=== PATIENT | female | born 1955 | race Two or more races ===

== ENCOUNTER 2018-06-04 08:30 | Inpatient (IN) | payer OTHER ==
[~2018-06-04] VITALS: Ht 157.5 cm; Wt 74.8 kg
[2018-06-11] MEDS ORDERED: BACTRIM DS TAB1 EACH PO (10:31)
[2018-06-11] MEDS ORDERED: INTEGRA PLUS C1 EACH PO (10:31)
[2018-06-11] MEDS ORDERED: XARELTO10 MG PO (10:31)
[2018-06-11] MEDS ORDERED: OXYC1TAB9 PO (10:31)
== END 2018-06-12 13:05 | DRG 470 ==
LOC: O/R 06-09 06:51 → SURH 06-09 06:51
PROVIDERS: Orthopaedic Surgery Sports Medicine
PROC: 0SRC0J9 Replacement of Right Knee Joint with Synthetic Substitute, Cemented, Open Approach (ICD-10-PCS; principal; 2018-06-09 09:00)
DX: M17.11 Unilateral primary osteoarthritis, right knee (principal)

== ENCOUNTER 2025-08-31 07:30 | Inpatient (IN) | payer OTHER ==
[~2025-08-31] VITALS: Ht 157.5 cm; Wt 69.4 kg
[~2025-08-31 07:30] MED LIST: BACTRIM DS TAB1 EACH PO; INTEGRA PLUS C1 EACH PO; OXYC1TAB9 PO; XARELTO10 MG PO
[2025-08-31 09:33] VITALS: BP 132/82
[2025-09-07] MEDS ORDERED: CEFAZOLIN SODIUM 1,000 MG VIAL ONE ×3 (08:13→15:51)
[2025-09-07] MEDS ORDERED: POVIDONE-IODINE 118 ML BOTT TOP ONE (10:47)
[2025-09-07] MEDS ORDERED: VANCOMYCIN HCL 1,000 MG VIAL ONE (10:47)
[2025-09-07] MEDS ORDERED: BUPIVACAINE HCL/MPF 0.5% 30ML VIAL ONE (10:47)
[2025-09-07] MEDS ORDERED: TRANEXAMIC ACID 100MG/1ML (1000MG) AMPUL ONE (10:47)
[2025-09-07] MEDS ORDERED: LIDOCAINE HCL 1%/EPINEPHRINE 20ML VIAL IJ ONE (10:47)
[2025-09-07] MEDS ORDERED: KETOROLAC TROMETHAMINE 60 MG VIAL IM ONE (12:25)
[2025-09-07] MEDS ORDERED: OxyCODONE HCL 5 MG TABLET (ROXICODONE) PO PRN (15:30)
[2025-09-07] MEDS ORDERED: MORPHINE SULFATE 4 MG/ML CARTRIDGE IV PRN (15:30)
[2025-09-07] MEDS ORDERED: ONDANSETRON HCL 2 MG/ML VIAL IV PRN (15:30)
[2025-09-07] MEDS ORDERED: SODIUM CHLORIDE 0.45 % 1,000 ML IV SCH (15:30)
[2025-09-07] MEDS ORDERED: GABAPENTIN 300 MG CAPSULE PO ONE (15:57)
[2025-09-07 16:20] VITALS: BP 120/63; O2SAT 98
[2025-09-07] MEDS ORDERED: CEFAZOLIN SODIUM 1,000 MG VIAL IV SCH (17:00)
[2025-09-07] MEDS ORDERED: GABAPENTIN 300 MG CAPSULE PO SCH (17:00)
[2025-09-07] MEDS ORDERED: ACETAMINOPHEN 500 MG GEL..CAP PO SCH (18:00)
[2025-09-08 01:27] VITALS: BP 100/68; O2SAT 98
[2025-09-08 06:16] LABS: BASO % 0.6 % (0.1-1.2); EOS # 0.28 (0.04-0.54); EOS % 4.0 % (0.7-7.0); LYMPH # 1.46 (1.18-3.74); LYMPH % 20.9 % (19.3-53.1); MEAN PLATELET VOLUME 8.60 fl (9.4-12.4); MONO # 0.69 (0.24-0.82); MONO % 9.9 % (4.7-12.5); NEUT # 4.48 (1.56-6.13); NEUT % 64.3 % (34.0-71.1); RED CELL DISTRIBUTION WIDTH 13.6 % (11.6-14.4)
[2025-09-08] MEDS ORDERED: ELIQUIS2.5 MG PO (07:45)
[2025-09-08] MEDS ORDERED: PERCOCET 5-3251 EACH PO (07:45)
[2025-09-08] MEDS ORDERED: LEVOFLOXACIN750 MG PO (07:45)
[2025-09-08] MEDS ORDERED: APIXABAN 2.5 MG TABLET PO SCH (09:00)
[2025-09-08] MEDS ORDERED: SENNOSIDES 1 TAB TABLET PO SCH (09:00)
[2025-09-08 09:07] VITALS: BP 98/59; O2SAT 100
[2025-09-08 11:32] LABS: COVID-19 AG NEGATIVE (NEGATIVE)
[2025-09-08 11:45] LABS: BUN CREA RATIO 15.0 (7.0-25.0); CREATININE SERUM 0.75 mg/dL (0.55-1.02); GFR 77.08; GLUCOSE FASTING 115.0 mg/dL (65-100); OSMOLALITY SERUM 285.0 MOSM/KG (275-295)
[2025-09-08] MEDS ORDERED: SOD FERRIC GLUC COMPLX/SUCROSE 62.5 MG/5 ML AMPUL IV SCH (12:00)
[2025-09-08] MEDS ORDERED: Cyanocobalamin/Mecobalamin 1 TAB.SL SL NR (12:00)
[2025-09-08 13:30] VITALS: BP 91/60
[2025-09-08 14:39] VITALS: BP 106/68
[2025-09-08 15:00] VITALS: BP 103/64; O2SAT 97
[2025-09-09 01:51] VITALS: BP 105/67; O2SAT 97
[2025-09-09 06:36] LABS: BASO % 0.3 % (0.1-1.2); EOS # 0.22 (0.04-0.54); EOS % 2.2 % (0.7-7.0); LYMPH # 0.67 (1.18-3.74); LYMPH % 6.8 % (19.3-53.1); MEAN PLATELET VOLUME 8.80 fl (9.4-12.4); MONO # 0.44 (0.24-0.82); MONO % 4.5 % (4.7-12.5); NEUT # 8.46 (1.56-6.13); NEUT % 85.8 % (34.0-71.1); RED CELL DISTRIBUTION WIDTH 13.5 % (11.6-14.4)
[2025-09-09 08:45] VITALS: BP 113/71; O2SAT 98
[2025-09-09] MEDS ORDERED: Cyanocobalamin/Mecobalamin 1 TAB.SL SL SCH (09:00)
[2025-09-09] MEDS ORDERED: IRON FUM,PS/FOLIC ACID/VITC/B3 1 CAP CAPSULE PO SCH (09:00)
[2025-09-09 16:00] VITALS: BP 95/61; O2SAT 95
[2025-09-10 00:36] VITALS: BP 105/62; O2SAT 100
[2025-09-10 08:31] VITALS: BP 120/73; O2SAT 98
== END 2025-09-10 13:40 | DRG 470 ==
LOC: O/R 09-07 07:00 → SURG 09-07 07:00 → SURH 09-07 07:30 → O/R 09-07 08:54 → SURG 09-07 15:14
PROVIDERS: ADMIT Orthopaedic Surgery; ATTEND Orthopaedic Surgery
PROC: 0MNP0ZZ Release Left Knee Bursa and Ligament, Open Approach (ICD-10-PCS; 2025-09-07)
PROC: 0SRD0J9 Replacement of Left Knee Joint with Synthetic Substitute, Cemented, Open Approach (ICD-10-PCS; principal; 2025-09-07 08:30)
DX: M17.11 Unilateral primary osteoarthritis, right knee (principal); D62 Acute posthemorrhagic anemia

== ENCOUNTER 2025-09-22 13:17 | Inpatient (IN) | payer OTHER ==
[~2025-09-22] VITALS: Ht 157.5 cm; Wt 69.4 kg
[~2025-09-22 13:17] MED LIST changes: +ELIQUIS2.5 MG PO; +LEVOFLOXACIN750 MG PO; +PERCOCET 5-3251 EACH PO
--- NOTE | 2025-09-22 13:27 | NUR ---
PACIENTE ALERTA Y ORIENTADA X3 EN AMBULANCIA QUIEN REFIERE QUE FUE OPERADA POR DR ANDUJAR HACE UN MES DE LA [place] IZQUIERDA Y EN EL OG DE HOY FUE DE SEGUIMIENTO A LA OFICINA Y MEDICO LA REFERIERE A ER YA QUE LA MISMA PRESENTABA FRACTURA DE LA RODILLA OPERADA.
--- NOTE | 2025-09-22 17:49 | NUR ---
SE ORIENTA PTE SOBRE GALDINO DE MUESTRAS LAS CUALES SE EXTRAEN BAJO MEDIDAS ASEPTICAS.SE NOTIFICAN PLACAS PENDIENTES.
[2025-09-22 18:21] LABS: BASO % 0.3 % (0.1-1.2); EOS # 0.28 (0.04-0.54); EOS % 3.1 % (0.7-7.0); LYMPH # 1.76 (1.18-3.74); LYMPH % 19.7 % (19.3-53.1); MEAN PLATELET VOLUME 7.70 fl (9.4-12.4); MONO # 0.45 (0.24-0.82); MONO % 5.0 % (4.7-12.5); NEUT # 6.33 (1.56-6.13); NEUT % 70.9 % (34.0-71.1); RED CELL DISTRIBUTION WIDTH 14.8 % (11.6-14.4)
[2025-09-22 18:50] LABS: ALT/SGPT 13.0 U/L (12-78); AST/SGOT 16.0 U/L (15-37); BILIRUBIN TOTAL 1.27 mg/dL (0.3-1.2); BUN CREA RATIO 19.0 (7.0-25.0); CREATININE SERUM 0.73 mg/dL (0.55-1.02); GFR 79.52; GLOBULINA 3.8 G/DL (2.4-3.5); GLUCOSE FASTING 110.0 mg/dL (65-100); OSMOLALITY SERUM 286.0 MOSM/KG (275-295)
[2025-09-22 18:53] LABS: INR 1.14
[2025-09-22] MEDS ORDERED: ACETAMINOPHEN 325 MG TABLET PO PRN (19:00)
[2025-09-22] MEDS ORDERED: 0.9 % SODIUM CHLORIDE 1,000 ML IV SCH (19:00)
[2025-09-22] MEDS ORDERED: ONDANSETRON HCL 4 MG in 0.9 % SODIUM CHLORIDE 50 ML IV PRN (19:00)
[2025-09-22] MEDS ORDERED: MORPHINE SULFATE 2 MG/ML SYRINGE IV PRN (19:00)
[2025-09-22] MEDS ORDERED: TRAMADOL HCL 50 MG TABLET PO ONE (19:15)
[2025-09-22 19:59] VITALS: BP 130/90
[2025-09-22 21:50] VITALS: BP 112/72; O2SAT 98
[2025-09-23 00:18] VITALS: BP 96/61; O2SAT 99
[2025-09-23] MEDS ORDERED: CEFAZOLIN SODIUM 1,000 MG VIAL IV ONE (06:00)
[2025-09-23] MEDS ORDERED: ENOXAPARIN SODIUM 40 MG/0.4 ML SYRINGE SUBCUTANEO SCH (09:00)
[2025-09-23 11:37] VITALS: BP 120/72; O2SAT 99
[2025-09-23 17:22] VITALS: BP 123/76; O2SAT 99
[2025-09-23 18:29] LABS: BASO % 0.7 % (0.1-1.2); EOS # 0.43 (0.04-0.54); EOS % 5.9 % (0.7-7.0); LYMPH # 1.73 (1.18-3.74); LYMPH % 23.7 % (19.3-53.1); MEAN PLATELET VOLUME 7.80 fl (9.4-12.4); MONO # 0.51 (0.24-0.82); MONO % 7.0 % (4.7-12.5); NEUT # 4.51 (1.56-6.13); NEUT % 61.7 % (34.0-71.1); RED CELL DISTRIBUTION WIDTH 14.5 % (11.6-14.4)
[2025-09-24 08:00] VITALS: BP 115/72; O2SAT 100
[2025-09-24] MEDS ORDERED: KETOROLAC TROMETHAMINE 60 MG VIAL IM ONE (13:31)
[2025-09-24] MEDS ORDERED: VANCOMYCIN HCL 1,000 MG VIAL ONE (13:32)
[2025-09-24] MEDS ORDERED: LIDOCAINE HCL 1%/EPINEPHRINE 20ML VIAL IJ ONE (13:32)
[2025-09-24] MEDS ORDERED: BUPIVACAINE HCL/MPF 0.5% 30ML VIAL ONE (13:32)
[2025-09-24] MEDS ORDERED: TRANEXAMIC ACID 100MG/1ML (1000MG) AMPUL ONE (13:32)
[2025-09-24] MEDS ORDERED: ISOPROPYL ALCOHOL 30 ML OUNCE TOP ONE (13:32)
[2025-09-24] MEDS ORDERED: POVIDONE-IODINE 118 ML BOTT TOP ONE (13:32)
[2025-09-24 18:40] VITALS: BP 121/74; O2SAT 98
[2025-09-24] MEDS ORDERED: SODIUM CHLORIDE 0.45 % 1,000 ML IV SCH (19:00)
[2025-09-24] MEDS ORDERED: OxyCODONE HCL 5 MG TABLET (ROXICODONE) PO PRN (19:00)
[2025-09-24] MEDS ORDERED: MORPHINE SULFATE 4 MG/ML CARTRIDGE IV PRN (19:00)
[2025-09-24] MEDS ORDERED: ONDANSETRON HCL 2 MG/ML VIAL IV PRN (19:00)
[2025-09-25] MEDS ORDERED: ACETAMINOPHEN 500 MG GEL..CAP PO SCH
[2025-09-25 00:30] VITALS: BP 91/52; O2SAT 98
[2025-09-25] MEDS ORDERED: CEFAZOLIN SODIUM 1,000 MG VIAL IV SCH (01:00)
[2025-09-25] MEDS ORDERED: GABAPENTIN 300 MG CAPSULE PO SCH (01:00)
[2025-09-25 08:17] VITALS: BP 114/67; O2SAT 100
[2025-09-25 08:33] LABS: BASO % 0.5 % (0.1-1.2); EOS # 0.23 (0.04-0.54); EOS % 2.9 % (0.7-7.0); LYMPH # 1.02 (1.18-3.74); LYMPH % 12.9 % (19.3-53.1); MEAN PLATELET VOLUME 8.10 fl (9.4-12.4); MONO # 0.74 (0.24-0.82); MONO % 9.4 % (4.7-12.5); NEUT # 5.80 (1.56-6.13); NEUT % 73.5 % (34.0-71.1); RED CELL DISTRIBUTION WIDTH 14.4 % (11.6-14.4)
[2025-09-25] MEDS ORDERED: APIXABAN 2.5 MG TABLET PO SCH (09:00)
[2025-09-25] MEDS ORDERED: SENNOSIDES 1 TAB TABLET PO SCH (09:00)
[2025-09-25 16:00] VITALS: BP 102/69; O2SAT 99
[2025-09-25] MEDS ORDERED: SOD FERRIC GLUC COMPLX/SUCROSE 62.5 MG in 0.9 % SODIUM CHLORIDE 50 ML IV SCH (17:00)
[2025-09-26 00:35] VITALS: BP 101/52; O2SAT 98
[2025-09-26 08:15] LABS: BASO % 0.5 % (0.1-1.2); EOS # 0.32 (0.04-0.54); EOS % 4.4 % (0.7-7.0); LYMPH # 0.88 (1.18-3.74); LYMPH % 12.0 % (19.3-53.1); MEAN PLATELET VOLUME 8.10 fl (9.4-12.4); MONO # 0.86 (0.24-0.82); MONO % 11.7 % (4.7-12.5); NEUT # 5.17 (1.56-6.13); NEUT % 70.7 % (34.0-71.1); RED CELL DISTRIBUTION WIDTH 14.6 % (11.6-14.4)
[2025-09-26 08:31] VITALS: BP 113/68; O2SAT 99
[2025-09-26 08:46] LABS: BUN CREA RATIO 16.0 (7.0-25.0); CREATININE SERUM 0.58 mg/dL (0.55-1.02); GFR 103.69; GLUCOSE FASTING 90.0 mg/dL (65-100); OSMOLALITY SERUM 287.0 MOSM/KG (275-295)
[2025-09-26] MEDS ORDERED: IRON FUM,PS/FOLIC ACID/VITC/B3 1 CAP CAPSULE PO SCH (09:00)
[2025-09-26 16:00] VITALS: BP 99/61; O2SAT 99
[2025-09-27 00:39] VITALS: BP 102/63; O2SAT 98
[2025-09-27 08:00] VITALS: BP 127/71; O2SAT 99
[2025-09-27 17:45] VITALS: BP 110/70; O2SAT 99
[2025-09-27 19:52] LABS: BASO % 0.3 % (0.1-1.2); EOS # 0.41 (0.04-0.54); EOS % 4.6 % (0.7-7.0); LYMPH # 1.61 (1.18-3.74); LYMPH % 18.2 % (19.3-53.1); MEAN PLATELET VOLUME 8.10 fl (9.4-12.4); MONO # 0.76 (0.24-0.82); MONO % 8.6 % (4.7-12.5); NEUT # 5.97 (1.56-6.13); NEUT % 67.5 % (34.0-71.1); RED CELL DISTRIBUTION WIDTH 17.0 % (11.6-14.4)
[2025-09-28 01:29] VITALS: BP 109/69; O2SAT 98
[2025-09-28 08:17] VITALS: BP 122/76; O2SAT 99
[2025-09-28] MEDS ORDERED: ELIQUIS2.5 MG PO (12:02)
[2025-09-28] MEDS ORDERED: PERCOCET 5-3251 EACH PO (12:02)
[2025-09-28 15:56] VITALS: BP 117/73; O2SAT 98
== END 2025-09-28 17:02 | disposition home or self-care (01) | DRG 481 ==
LOC: SURG → ER 13:17 → SURG 18:49
PROVIDERS: Internal Medicine; Orthopaedic Surgery; Preventive Medicine Public Health & General Preventive Medicine; ADMIT Internal Medicine; ATTEND Internal Medicine
PROC: 0QU Lower Bones, Supplement (ICD-10-PCS; 2025-09-24)
PROC: 0QSC04Z Reposition Left Lower Femur with Internal Fixation Device, Open Approach (ICD-10-PCS; principal; 2025-09-24 13:45)
PROC: 30233N1 Transfusion of Nonautologous Red Blood Cells into Peripheral Vein, Percutaneous Approach (ICD-10-PCS; 2025-09-27)
DX: S72.452A Displaced supracondylar fracture without intracondylar extension of lower end of left femur, initial encounter for closed fracture (principal); D62 Acute posthemorrhagic anemia; M80.052A Age-related osteoporosis with current pathological fracture, left femur, initial encounter for fracture; M97.12XA Periprosthetic fracture around internal prosthetic left knee joint, initial encounter